=== PATIENT | male | born 1960 | race Caucasian/White ===

== ENCOUNTER → 2021-11-17 08:19 | Outpatient (BNVA) | payer BC, SELFPAY | PROVIDERS: PCP Nurse Practitioner Family; Visit Provider Internal Medicine Rheumatology | DX: M06.9 Rheumatoid arthritis, unspecified (principal); R06.02 Shortness of breath; M19.90 Unspecified osteoarthritis, unspecified site; M05.79 Rheumatoid arthritis with rheumatoid factor of multiple sites without organ or systems involvement; Z71.85 Encounter for immunization safety counseling; Z79.899 Other long term (current) drug therapy | CPT/HCPCS: 71046; 73130; 73630 ==